=== PATIENT | male | born 1960 | race Caucasian/White ===

== ENCOUNTER → 2016-11-03 | Outpatient (CLI) | payer OTHER | LOC: FIMAGING 17:51 | PROVIDERS: ATTEND Orthopaedic Surgery | DX: M25.311 Other instability, right shoulder (principal); M75.21 Bicipital tendinitis, right shoulder; M19.011 Primary osteoarthritis, right shoulder; M25.411 Effusion, right shoulder ==

== ENCOUNTER 2017-04-20 13:39 | Observation (INO) | payer OTHER ==
--- NOTE | 2017-04-20 14:05 | EDPHY ---
H & P Time Seen by Provider: 04/20/17 14:03 HPI/ROS: Chief complaint. Possible syncope, GI bleed HPI. 56-year-old male presents emergency department with 4 day history of decreased appetite and diarrhea that is black as well as vomiting black emesis. The diarrhea has been continuing about every 20 minutes. Initially he had some periumbilical abdominal pain but he does not have any pain now. He has been thirsty. Previously had increased abdominal pain with drinking water. He has been dizzy and sweaty and this morning collapsed in the shower. Today also had bright red blood per rectum. He saw his PCP this morning and stool Hemoccult was positive. He was sent by ambulance to the ED. Patient has a history of alcoholism and had been sober for 18 months and then began drink vodka 10 days ago. He has never had previous problems with GI bleeding or peptic ulcer disease. He notes he is short of breath and dizzy with exertion. ROS Constitutional. no fever/chills, generalized weakness Eyes. no problems with vision ENT. no sore throat, no nasal drainage Cardiovascular. no chest pain Respiratory. Shortness of breath with exertion Abdominal. Abdominal pain a few days ago. Black emesis and diarrhea . no problems urinating MS. no calf pain/swelling, no neck/back pain, no joint pain Skin. no rash Lymph. no swollen glands Neuro. Dizzy Past Medical/Surgical History: Alcoholism and insomnia Social History: Single, nonsmoker. No alcohol for several days Physical Exam: General Appearance: Adult well-developed male mild distress vital signs significant for heart rate 114 Eyes: Pupils equal and round no pallor or injection. ENT, Mouth: Mucous membranes are moist. Respiratory: There are no retractions, lungs are clear to auscultation. Cardiovascular: Regular rate and rhythm. Gastrointestinal: Abdomen is soft and nontender to palpation. No masses. Decreased bowel sounds Neurological: Awake and alert, sensory and motor exams grossly normal. Skin: Warm and dry, no rashes. Musculoskeletal: Neck is supple nontender. Extremities symmetrical, full range of motion. Psychiatric: Patient is oriented X 3, there is no agitation. Constitutional: Initial Vital Signs Temperature (C) 36.8 C 04/20/17 14:11 Heart Rate 110 H 04/20/17 14:11 Respiratory Rate 16 04/20/17 14:11 Blood Pressure 127/80 H 04/20/17 14:11 O2 Sat (%) 99 04/20/17 14:11 O2 Delivery Mode Room Air Allergies/Adverse Reactions: No Known Allergies Allergy (Unverified 04/20/17 14:08) Home Medications: Medication Instructions Recorded Trazodone HCl 04/20/17 Medical Decision Making - Diagnostics EKG Interpretation: EKG interpreted by me shows sinus tachycardia with normal interval left axis deviation. QRS is otherwise normal there is no significant ST elevation or depression. No arrhythmia. The rate is 111 Imaging Results: One-view chest x-ray interpreted by me is normal Procedures: IV normal saline with initial target of 2 L. Pepcid IV. ED Course/Re-evaluation: Re-evaluation 3:00 p.m.. Heart rate down into the upper 90s. Patient without complaints and is otherwise stable. No further emesis or passing blood in stool. He and I discussed laboratory evaluation, treatment plan including recommendation for admission. He expresses understanding and agreement I consulted and discussed case Dr. Reji Price, hospitalist who agrees to the admission I consulted and discussed the case with Dr. Stiles, GI, who agrees with treatment plan and will see the patient in consultation Differential Diagnosis: This is likely upper GI bleeding as he has been vomiting coffee ground emesis. He has been passing melanotic stool. Hemoccult in the physician's office today was positive so was not repeated. I considered esophageal varices and cirrhosis due to previous alcoholism. This could certainly be peptic ulcer disease and bleeding - Data Points Laboratory Results: Laboratory Results 04/20/17 13:30 04/20/17 13:30 04/20/17 04/20/17 04/20/17 14:00 13:50 13:30 WBC RBC Hgb Hct MCV MCH MCHC RDW Plt Count MPV Neut % (Auto) Lymph % (Auto) [place] % (Auto) Eos % (Auto) Baso % (Auto) Nucleat RBC Rel Count Absolute Neuts (auto) Absolute Lymphs (auto) Absolute Monos (auto) Absolute Eos (auto) Absolute Basos (auto) Absolute Nucleated RBC Immature Gran % Immature Gran # PT 14.3 SEC SEC (12.0-15.0) INR 1.12 (0.83-1.16) APTT 23.9 SEC SEC (23.0-38.0) Sodium 140 mEq/L mEq/L (134-144) Potassium 3.6 mEq/L mEq/L (3.5-5.2) Chloride 105 mEq/L mEq/L (97-110) Carbon Dioxide 19 mEq/l L mEq/l (22-31) Anion Gap 16 mEq/L mEq/L (8-16) BUN 43 mg/dL H mg/dL (7-23) Creatinine 1.0 mg/dL mg/dL (0.7-1.3) Estimated GFR > 60 Glucose 131 mg/dL H mg/dL (70-100) Calcium 10.8 mg/dL H mg/dL (8.5-10.4) Phosphorus 3.1 mg/dL mg/dL (2.5-4.5) Total Bilirubin 1.7 mg/dL H mg/dL (0.1-1.4) Conjugated Bilirubin 0.3 mg/dL mg/dL (0.0-0.5) Unconjugated Bilirubin 1.4 mg/dL H mg/dL (0.0-1.1) AST 56 IU/L IU/L (17-59) ALT 55 IU/L IU/L (21-72) Alkaline Phosphatase 45 IU/L IU/L (38-126) Troponin I 0.021 ng/mL ng/mL (0.000-0.034) Total Protein 6.7 g/dL g/dL (6.3-8.2) Albumin 3.8 g/dL g/dL (3.5-5.0) Lipase 24 IU/L IU/L (23-300) 04/20/17 13:30 WBC 14.77 10^3/uL H 10^3/uL (3.80-9.50) RBC 3.63 10^6/uL L 10^6/uL (4.40-6.38) Hgb 13.4 g/dL L g/dL (13.7-17.5) Hct 36.9 % L % (40.0-51.0) MCV 101.7 fL H fL (81.5-99.8) MCH 36.9 pg H pg (27.9-34.1) MCHC 36.3 g/dL g/dL (32.4-36.7) RDW 12.1 % % (11.5-15.2) Plt Count 199 10^3/uL 10^3/uL (150-400) MPV 10.6 fL fL (8.7-11.7) Neut % (Auto) 86.4 % H % (39.3-74.2) Lymph % (Auto) 7.5 % L % (15.0-45.0) Thayer % (Auto) 4.8 % % (4.5-13.0) Eos % (Auto) 0.1 % L % (0.6-7.6) Baso % (Auto) 0.3 % % (0.3-1.7) Nucleat RBC Rel Count 0.0 % % (0.0-0.2) Absolute Neuts (auto) 12.76 10^3/uL H 10^3/uL (1.70-6.50) Absolute Lymphs (auto) 1.11 10^3/uL 10^3/uL (1.00-3.00) Absolute Monos (auto) 0.71 10^3/uL 10^3/uL (0.30-0.80) Absolute Eos (auto) 0.01 10^3/uL L 10^3/uL (0.03-0.40) Absolute Basos (auto) 0.04 10^3/uL 10^3/uL (0.02-0.10) Absolute Nucleated RBC 0.00 10^3/uL 10^3/uL (0-0.01) Immature Gran % 0.9 % % (0.0-1.1) Immature Gran # 0.14 10^3/uL H 10^3/uL (0.00-0.10) PT INR APTT Sodium Potassium Chloride Carbon Dioxide Anion Gap BUN Creatinine Estimated GFR Glucose Calcium Phosphorus Total Bilirubin Conjugated Bilirubin Unconjugated Bilirubin AST ALT Alkaline Phosphatase Troponin I Total Protein Albumin Lipase Medications Given: Discontinued Medications Sodium Chloride (Ns) 1,000 mls @ 0 mls/hr IV EDNOW ONE; Wide Open PRN Reason: Protocol Stop: 04/20/17 14:19 Last Admin: 04/20/17 15:02 Dose: 1,000 mls Sodium Chloride (Ns) 1,000 mls @ 0 mls/hr IV ONCE ONE; Wide Open PRN Reason: Protocol Stop: 04/20/17 14:20 Last Admin: 04/20/17 15:02 Dose: 1,000 mls Famotidine/Sodium Chloride (Pepcid 20 Mg (Premix)) 50 mls @ 200 mls/hr IV EDNOW ONE Stop: 04/20/17 14:32 Last Admin: 04/20/17 15:01 Dose: 50 mls Departure - Departure Disposition: [facility] Inpatient Acute Clinical Impression: Gastrointestinal bleeding, upper Condition: Fair Referrals: Patient,NotPresent [Unknown] - As per Instructions
--- NOTE | 2017-04-20 14:10 | CPEKG ---
Heart Rate: 111 RR Interval: 541 P-R Interval: 152 QRSD Interval: 70 QT Interval: 316 QTC Interval: 430 P [place]: 50 QRS [place]: 3 T Wave [place]: 67 EKG Severity - ABNORMAL ECG - EKG Impression: SINUS TACHYCARDIA EKG Impression: LOW VOLTAGE IN FRONTAL LEADS EKG Impression: BORDERLINE R WAVE PROGRESSION, ANTERIOR LEADS EKG Impression: BORDERLINE T ABNORMALITIES, ANT-LAT LEADS Electronically Signed By: Jose D Tabares 20-Apr-2017 15:28:55
[2017-04-20 14:14] LABS: % IMMATURE GRANULYOCYTES 0.9 % (0.0-1.1); ABSOLUTE IMMATURE GRANULOCYTES 0.14 10^3/uL (0.00-0.10); ADD DIFF? NO; ADD MORPH? NO; ADD SCAN? NO; ATYPICAL LYMPHOCYTE FLAG 0 (0-99); FRAGMENT RBC FLAG 0 (0-99); HEMATOCRIT 36.9 % (40.0-51.0); HEMOGLOBIN 13.4 g/dL (13.7-17.5); LEFT SHIFT FLG 0 (0-99); LIPEMIA HEMOLYSIS FLAG 90 (0-99); MEAN CELL HEMOGLOBIN 36.9 pg (27.9-34.1); MEAN CELL HEMOGLOBIN CONCENTR. 36.3 g/dL (32.4-36.7); MEAN CELL VOLUME 101.7 fL (81.5-99.8); MEAN PLATELET VOLUME 10.6 fL (8.7-11.7); PLATELET CLUMPS FLAG 10 (0-99); PLATELET COUNT 199 10^3/uL (150-400); RED BLOOD CELL COUNT 3.63 10^6/uL (4.40-6.38); RED CELL DISTRIBUTION WIDTH 12.1 % (11.5-15.2)
[2017-04-20] MEDS ORDERED: FAMOTIDINE 20 MG/NACL 50 ML IV ONE (14:18)
[2017-04-20] MEDS ORDERED: NS 1,000 ML IV ONE ×2 (14:18→14:19)
[2017-04-20 14:21] LABS: ANION GAP 16 mEq/L (8-16); CALCIUM 10.8 mg/dL (8.5-10.4); CARBON DIOXIDE 19 mEq/l (22-31); CHLORIDE 105 mEq/L (97-110); GLOMERULAR FILTRATION RATE > 60; GLUCOSE 131 mg/dL (70-100); POTASSIUM 3.6 mEq/L (3.5-5.2); SODIUM 140 mEq/L (134-144)
[2017-04-20 14:37] LABS: INR 1.12 (0.83-1.16); PROTIME(PATIENT) 14.3 SEC (12.0-15.0)
[2017-04-20 14:38] LABS: APTT 23.9 SEC (23.0-38.0)
[2017-04-20 15:01] LABS: ALBUMIN 3.8 g/dL (3.5-5.0); BILIRUBIN,TOTAL 1.7 mg/dL (0.1-1.4); BILIRUBIN-CONJUGATED 0.3 mg/dL (0.0-0.5); BILIRUBIN-UNCONJUGATED 1.4 mg/dL (0.0-1.1); TOTAL PROTEIN 6.7 g/dL (6.3-8.2)
[2017-04-20 15:13] LABS: TROPONIN I 0.021 ng/mL (0.000-0.034)
[2017-04-20] MEDS ORDERED: PANTOPRAZOLE SODIUM 80 MG in NS 100 ML IV ONE (15:13)
[2017-04-20] MEDS ORDERED: EPINEPHrine 1 MG/10 ML SYR IVP ONE (15:33)
[2017-04-20] MEDS ORDERED: fentaNYL 100 MCG/2 ML INJ ONE (15:42)
[2017-04-20] MEDS ORDERED: SUCCINYLCHOLINE CHLORIDE*ANESTHESIA ONLY*200 MG/10 ML SYR IVP ONE (15:42)
[2017-04-20] MEDS ORDERED: PROPOFOL 200 MG/20 ML VIAL ONE (15:42)
[2017-04-20] MEDS ORDERED: LIDOCAINE 2% 5 ML SDV ONE (15:42)
--- NOTE | 2017-04-20 15:52 | PDANEPAE ---
ANE History of Present Illness suspected GIB ANE Past Medical History - Cardiovascular History Hx Hypertension: No Hx Arrhythmias: No Hx Chest Pain: No Hx Coronary Artery / Peripheral Vascular Disease: No Hx CHF / Valvular Disease: No Hx Palpitations: No - Pulmonary History Hx COPD: No Hx Asthma/Reactive Airway Disease: No Hx Recent Upper Respiratory Infection: No Hx Oxygen in Use at Home: No Hx Sleep Apnea: No - Endocrine History Hx Diabetes: No Hypothyroid: No Hyperthyroid: No Obesity: no - Renal History Hx Renal Disorders: No - Other Health History Other Health History: alcoholic ANE Review of Systems Review of Systems: - Exercise capacity Exercise capacity: >=4 METS - Systems Constitutional: Reports: malaise, weakness Gastrointestinal: Reports: black stools ANE Patient History - Allergies Allergies/Adverse Reactions: No Known Allergies Allergy (Unverified 04/20/17 14:08) - Home Medications Home Medications: Trazodone HCl 04/20/17 [Last Taken Unknown] - NPO status NPO Status: no food or drink >8 hours - Anes Hx Anes Hx: no prior problems - Smoking Hx Smoking Status: Never smoked - Alcohol Use Alcohol Use: Other (recent lapse in sobriety) ANE Labs/Vital Signs - Labs Result Diagrams: 04/20/17 13:30 04/20/17 13:30 - Vital Signs Blood Pressure: 126/94 Heart Rate: 104 Respiratory Rate: 16 O2 Sat (%): 98 Height: 172.72 cm Weight: 75.296 kg ANE Physical Exam - Airway Mallampati Score: Class 2 - Pulmonary Pulmonary: no respiratory distress - Cardiovascular Cardiovascular: regular rate and rhythym - ASA Status ASA Status: III, E ANE Anesthesia Plan Anesthesia Plan: general endotracheal anesthesia
[2017-04-20] MEDS ORDERED: ONDANSETRON 4 MG/2 ML VIAL IVP PRN ×3 (16:26→20:14)
--- NOTE | 2017-04-20 16:29 | POSTOPPROG ---
Post Op Note Date of Operation: 04/20/17 Surgeon: Guillermo Stiles Anesthesia: GET(General Endotracheal) Pre-op Diagnosis: UGI bleed Post-op Diagnosis: MW tear Inf/Abcess present in the surg proc area at time of surgery?: No EBL: Minimal
--- NOTE | 2017-04-20 16:30 | SOAPPROG ---
SOAP Progress Note Assessment/Plan: Assessment:EGD for UGI bleed shows actively oozing MW tear. Hemostasis achieved with APC. Plan:IV or PO Zofran q4h x 24 hours. PPIs as ordered. Observe overnight, okay to send home tomorrow if stable. 04/20/17 16:29 Objective: Vital Signs Temp Pulse Resp BP Pulse Ox 36.8 C 100 16 122/84 H 100 04/20/17 14:11 04/20/17 16:04 04/20/17 16:04 04/20/17 16:04 04/20/17 16:04 04/19/17 04/20/17 04/21/17 05:59 05:59 05:59 Intake Total 1100 Balance 1100 PT 14.3 SEC (12.0-15.0) 04/20/17 13:50 INR 1.12 (0.83-1.16) 04/20/17 13:50 ICD10 Worksheet Patient Problems: Problems Problem Status Onset Gastrointestinal bleeding, upper Acute
[2017-04-20] MEDS ORDERED: ACETAMINOPHEN 500 MG TAB PO PRN (16:35)
[2017-04-20] MEDS ORDERED: OXYCODONE/APAP 5/325 TAB PO PRN (16:35)
[2017-04-20] MEDS ORDERED: NALOXONE HCL 0.4 MG/ML INJ IVP PRN (16:35)
[2017-04-20] MEDS ORDERED: fentaNYL 100 MCG/2 ML INJ IVP PRN (16:35)
[2017-04-20] MEDS ORDERED: ALBUTEROL 3 ML DEYVIAL IH PRN (16:35)
--- NOTE | 2017-04-20 16:36 | POSTANESTH ---
Post Anesthetic Evaluation Cardiovascular Status: Normal, Stable Respiratory Status: Normal, Stable Level of Consciousness/Mental Status: Can Participate in Eval Pain Control: Adequate, Prn Tx Ordered Nausea/Vomiting Control: Adequate, Prn Tx Ordered Complications Possibly Related to Anesthesia: None Noted
--- NOTE | 2017-04-20 16:39 | SOAPPROG ---
SOAP Progress Note Assessment/Plan: Assessment:EGD for UGI bleed shows actively oozing MW tear. Hemostasis achieved with APC. Plan:IV or PO Zofran q4h x 24 hours. PPIs as ordered. Observe overnight, okay to send home tomorrow if stable. 04/20/17 16:29 04/20/17 16:39 CORRECTION: Gold probe was used for hemostasis, not APC. Objective: Vital Signs Temp Pulse Resp BP Pulse Ox 36.8 C 100 16 122/84 H 100 04/20/17 14:11 04/20/17 16:04 04/20/17 16:04 04/20/17 16:04 04/20/17 16:04 04/19/17 04/20/17 04/21/17 05:59 05:59 05:59 Intake Total 1100 Balance 1100 PT 14.3 SEC (12.0-15.0) 04/20/17 13:50 INR 1.12 (0.83-1.16) 04/20/17 13:50 ICD10 Worksheet Patient Problems: Problems Problem Status Onset Gastrointestinal bleeding, upper Acute
--- NOTE | 2017-04-20 16:39 | GIREPORT ---
Replaced By [facility] - Endoscopy Department Patient Name: Federico Duarte Procedure Date: 04/20/2017 3:43 PM Patient Type: Emergency Department Attending MD/ ER Physician: Guillermo Stiles MD Procedure: Upper GI endoscopy Indications: Coffee-ground emesis, Melena, Suspected upper gastrointestinal bleeding Providers: Guillermo Stiles MD Medicines: General Anesthesia Complications: No immediate complications. Description of Procedure: After obtaining informed consent, the endoscope was passed under direct vision. Throughout the procedure, the patient's blood pressure, pulse, and oxygen saturations were monitored continuous ly. The Endoscope was introduced through the mouth, and advanced to the third part of duodenum. The upper GI endoscopy was accomplished without difficulty. The patient tolerated the procedure well. Findings: The gastric antrum was normal. A 6 mm bleeding Kalani-Cedillo tear with stigmata of recent bleeding was found. Coagulation for hemostasis using bipolar probe was successful. Estimated blood loss was minimal. The entire examined stomach was normal. The in the duodenum was normal. Estimated Blood Loss: Estimated blood loss: none. Post Op Diagnosis: - Normal antrum. - Kalani-Cedillo tear. Treated with bipolar cautery. - Normal stomach. - Normal. - No specimens collected. Recommendation: - Ad[facility] the [facility]. - Clear liquid diet. - Use Protonix (pantoprazole) 40 mg IV daily. - Use Zofran (ondansetron) 4 mg IV q4h x 24 hours. Attending Participation: I personally performed the entire procedure. Guillermo Stiles MD Guillermo Stiles MD 04/20/2017 4:38:46 PM Number of Addenda: 0 Note Initiated On: 04/20/2017 3:43 PM [email or web address]
[2017-04-20] MEDS ORDERED: ONDANSETRON DISINTEGRATING 4 MG TAB PO PRN (20:14)
[2017-04-20] MEDS ORDERED: ACETAMINOPHEN 325 MG TAB PO PRN (20:14)
[2017-04-20] MEDS ORDERED: NS 1,000 ML IV SCH (20:15)
--- NOTE | 2017-04-20 20:54 | GHP ---
[f rep st] HISTORY AND PHYSICAL DATE OF ADMISSION: 04/20/2017 CHIEF COMPLAINT: Melena. HISTORY OF PRESENT ILLNESS: This is a 56-year-old male with no serious previous medical problems. Pieter montoya has had 4 days of diarrhea which he admits is black tarry stool. He also had some vomiting a coupl e times which had coffeegrounds. He has also had some dizziness. He does have a history of previous alcoholism, states he has been sober for the last 10 months and just had one shot of vodka recently. He also had a cough. He has had fevers, chills, and sweats. No myalgias. Cough is nonproductive. He had an EGD done today which showed a Kalani-Cedillo tear. REVIEW OF SYSTEMS: A 10-point review of systems was obtained and, other than stated, was negative. PAST MEDICAL HISTORY: None. MEDICATIONS: Reviewed. SOCIAL HISTORY: Quit drinking 10-12 months ago. Denies any active relapse currently. No smoking. FAMILY HISTORY: Reviewed and noncontributory. PHYSICAL EXAMINATION: VITAL SIGNS: Afebrile, blood pressure is 121/83, heart rate initially 104, no w has come down to 85, saturating 95% on room air. GENERAL: The patient is well developed, in no ap parent distress. HEENT: Nonicteric sclerae. Extraocular movements intact. Moist mucous membranes. NECK: Supple. No thyromegaly. LUNGS: Good effort. Clear to auscultation bilaterally. CARDIOVA SCULAR: Regular rate and rhythm. No murmurs or gallops. ABDOMEN: Positive bowel sounds. Soft, no ntender, nondistended. No hepatosplenomegaly. EXTREMITIES: No clubbing, cyanosis, or edema. SKIN: Without rash. Warm, dry, intact. NEUROLOGIC: Alert and oriented x3. Moving all 4 extremities equ ally. PSYCHIATRIC: Normal mood and affect. LABORATORY DATA: White blood cell count elevated at 14, hemoglobin 13, platelets are 199. Coags are normal. Chemistry is normal, except for elevated BUN, total bilirubin is 1.7, unconjugated 1.4. T and ALT are normal. ASSESSMENT: This is a 56-year-old male presenting with Kalani-Cedillo tear and upper gastrointestinal bleed. PLAN: 1. Upper GI bleed with Kalani-Cedillo tear. Will continue PPI as directed by a Gastroenterology for 1 month. He is on a clear liquid diet today. If he is doing well tomorrow, can advance diet and pro bably be discharged home. 2. Anemia secondary to acute blood loss. I anticipate his hemoglobin to drop with hydration. Will continue to watch. 3. URI. Respiratory panel was sent. The amount of diarrhea that he had might be more than could be explained by melena alone. Could be having the flu. /[id number]/MODL
[2017-04-20] MEDS ORDERED: traZODone 100 MG TAB PO SCH (21:00)
[2017-04-20] MEDS: PANTOPRAZOLE SODIUM 40 MG in NS 100 ML IV SCH (21:17)
[2017-04-21 03:52] LABS: ANION GAP 4 mEq/L (8-16); CALCIUM 8.7 mg/dL (8.5-10.4); CARBON DIOXIDE 23 mEq/l (22-31); CHLORIDE 109 mEq/L (97-110); CREATININE 0.7 mg/dL (0.7-1.3); GLOMERULAR FILTRATION RATE > 60; GLUCOSE 83 mg/dL (70-100); POTASSIUM 3.1 mEq/L (3.5-5.2); SODIUM 136 mEq/L (134-144)
[2017-04-21 03:53] VITALS: TEMP 97.9
[2017-04-21 04:25] LABS: % IMMATURE GRANULYOCYTES 0.3 % (0.0-1.1); ABSOLUTE IMMATURE GRANULOCYTES 0.03 10^3/uL (0.00-0.10); ADD DIFF? NO; ADD MORPH? NO; ADD SCAN? NO; ATYPICAL LYMPHOCYTE FLAG 0 (0-99); FRAGMENT RBC FLAG 0 (0-99); HEMATOCRIT 24.7 % (40.0-51.0); HEMOGLOBIN 8.7 g/dL (13.7-17.5); LEFT SHIFT FLG 0 (0-99); LIPEMIA HEMOLYSIS FLAG 90 (0-99); MEAN CELL HEMOGLOBIN 36.3 pg (27.9-34.1); MEAN CELL HEMOGLOBIN CONCENTR. 35.2 g/dL (32.4-36.7); MEAN CELL VOLUME 102.9 fL (81.5-99.8); MEAN PLATELET VOLUME 10.8 fL (8.7-11.7); PLATELET CLUMPS FLAG 0 (0-99); PLATELET COUNT 116 10^3/uL (150-400); RED CELL DISTRIBUTION WIDTH 12.2 % (11.5-15.2)
[2017-04-21 08:05] VITALS: BP 123/71; PULSE 80; RESP 17; O2SAT 98
[2017-04-21] MEDS: PANTOPRAZOLE SODIUM 40 MG in NS 100 ML IV SCH (08:05)
[2017-04-21] MEDS ORDERED: POTASSIUM CL 20 MEQ/15 ML UDCUP PO ONE (08:12)
--- NOTE | 2017-04-21 09:30 | PDDCSUM ---
Discharge Summary Discharge Summary: Dates of service 04/20-04/21/17 consultations: GI Procedures performed: EGD Hospital course by problem: # UGIB: s/p EGD and found to be 2/2 MWT. Did occur in the setting of preceding n /v/diarrhea which has resolved. Patient very eager to dc home, understands return precautions, cautioned around his etoh use. # acute blood loss anemia: 2/2 above, asymptomatic, will resume taking iron at home for at least the next 2 weeks and f/u with PCP in the meantime to recheck h /h. # URI: respiratory PCR panel sent and negative, sxs very mild and improving Dc home f/u with PCP repeat cbc within the next week > 35 min spent in dc, more than half in face to face discussion with patient regarding f/u care plan
--- NOTE | 2017-04-21 14:36 | ASDISCHSUM ---
Discharge Information Plan Status:Home with No Needs Medically Cleared to Leave:04/21/2017 Discharge Date:04/21/2017 12:23 PM CM D/C Disposition: ADT D/C Disposition:Home, Routine, Self-Care Projected Discharge Date:04/21/2017 12:00 AM Transportation at D/C: Discharge Delay Reason: Follow-Up Date:04/21/2017 12:00 AM Discharge Slot: Final Diagnosis: Placement Information Patient Contact Information Contact Name:STEPHON Relationship: Address: Home Phone: Work Phone: City: Alternate Phone: State/[employer] Online Scheduling Code: Email: Financial Information Financial Class:HMO and PPO Plans Primary Plan Desc:[facility] Primary Plan Number:[id number] Secondary Plan Desc: Secondary Plan Number: Assessment Information Intervention Information
== END 2017-04-21 12:23 | disposition home or self-care (01) ==
LOC: EDUNIT# → INTOOBSV 15:14 → F2W 17:34
PROVIDERS: ADMIT Internal Medicine; ATTEND Internal Medicine
PROC: 0DJ68ZZ Inspection of Stomach, Via Natural or Artificial Opening Endoscopic (ICD-10-PCS; principal; 2017-04-20 15:00)
PROC: 0W3P8ZZ Control Bleeding in Gastrointestinal Tract, Via Natural or Artificial Opening Endoscopic (ICD-10-PCS; principal; 2017-04-20 15:00)
DX: K22.6 Gastro-esophageal laceration-hemorrhage syndrome (principal); D62 Acute posthemorrhagic anemia; J06.9 Acute upper respiratory infection, unspecified; F10.20 Alcohol dependence, uncomplicated
CPT/HCPCS: 43255; 71010; 93005; G0378; 96374; J0330; J2704; J3010